=== PATIENT | male | born 1965 | race Caucasian/White ===

== ENCOUNTER 2016-10-06 10:14 | Emergency (ER) | payer OTHER ==
[~2016-10-06] VITALS: Ht 177.8 cm; Wt 80.4 kg
[2016-10-06 13:00] VITALS: BP 122/68
== END 2016-10-06 13:01 | disposition home or self-care (01) ==
LOC: EME 10:14
PROC: 0HCDXZZ Extirpation of Matter from Right Lower Arm Skin, External Approach (ICD-10-PCS; principal; 2016-10-06)
DX: Z48.02 Encounter for removal of sutures (principal); Z18.89 Other specified retained foreign body fragments; Z98.890 Other specified postprocedural states
CPT/HCPCS: 99281; 99284